=== PATIENT | male | born 1985 | race African-American/Black ===

== ENCOUNTER 2019-01-28 23:08 | Emergency (ER) | payer OTHER ==
[~2019-01-28] VITALS: Ht 170.2 cm; Wt 72.6 kg
[2019-01-28 23:24] VITALS: BP 147/96
[2019-01-28] MEDS ORDERED: HYDR30CR61 TP (23:40)
[2019-01-28] MEDS ORDERED: SENN-121 PO (23:40)
[2019-01-28] MEDS ORDERED: HYDR-3164 PO (23:40)
--- NOTE | 2019-01-28 23:40 | PHYS DOC ---
Past Medical History Past Medical History: No Pertinent History Past Surgical History: No Surgical History Alcohol Use: None Drug Use: Marijuana Adult General Chief Complaint Chief Complaint: OTHER COMPLAINTS HPI HPI Patient is a 33 year old [f__sex] who presents with [] Review of Systems Review of Systems Constitutional: Denies fever or chills [] Eyes: Denies change in visual acuity, redness, or eye pain [] HENT: Denies nasal congestion or sore throat [] Respiratory: Denies cough or shortness of breath [] Cardiovascular: No additional information not addressed in HPI [] GI: Denies abdominal pain, nausea, vomiting, bloody stools or diarrhea [] : Denies dysuria or hematuria [] Musculoskeletal: Denies back pain or joint pain [] Integument: Denies rash or skin lesions [] Neurologic: Denies headache, focal weakness or sensory changes [] Endocrine: Denies polyuria or polydipsia [] All other systems were reviewed and found to be within normal limits, except as documented in this note. Allergies Allergies Allergies Coded Allergies Type Severity Reaction Last Updated Verified No Known Drug Allergies 01/02/16 No Physical Exam Physical Exam Constitutional: Well developed, well nourished, no acute distress, non-toxic appearance. [] HENT: Normocephalic, atraumatic, bilateral external ears normal, oropharynx moist, no oral exudates, nose normal. [] Eyes: PERRLA, EOMI, conjunctiva normal, no discharge. [] Neck: Normal range of motion, no tenderness, supple, no stridor. [] Cardiovascular:Heart rate regular rhythm, no murmur [] Lungs & Thorax: Bilateral breath sounds clear to auscultation [] Abdomen: Bowel sounds normal, soft, no tenderness, no masses, no pulsatile masses. [] Skin: Warm, dry, no erythema, no rash. [] Back: No tenderness, no CVA tenderness. [] Extremities: No tenderness, no cyanosis, no clubbing, ROM intact, no edema. [] Neurologic: Alert and oriented X 3, normal motor function, normal sensory function, no focal deficits noted. [] Psychologic: Affect normal, judgement normal, mood normal. [] EKG EKG [] Radiology/Procedures Radiology/Procedures [] Course & Med Decision Making Course & Med Decision Making Pertinent Labs and Imaging studies reviewed. (See chart for details) [] Dragon Disclaimer Dragon Disclaimer This electronic medical record was generated, in whole or in part, using a voice recognition dictation system. Departure Departure Impression: Primary Impression: Anal fissure Disposition: HOME, SELF-CARE Condition: STABLE Referrals: NO PCP (PCP) ANÍBAL SAUER MD Patient Instructions: Anal Fissure, Adult, [id number] Scripts Sennosides/Docusate Sodium (Colace 2-in-1 Tablet) 1 Each Tablet 1 EACH PO QHS, #30 TAB Prov: MARTA STEWART DO 01/28/19 Hydrocodone/Apap 5-325 (NORCO 5-325 TABLET) 1 Each Tablet 1 TAB PO PRN Q6HRS PRN for PAIN, #10 TAB 0 Refills Prov: MARTA STEWART DO 01/28/19 Hydrocortisone (ANUSOL-HC) 30 Gm Cream..g. 1 CYNTHIA TP BID, #30 GM 0 Refills Prov: MARTA STEWART DO 01/28/19 MARTA STEWART DO Jan 28, 2019 23:40
[2019-01-28] MEDS ORDERED: HYDROcodone/APAP 5/325MG 1 TAB TABLET PO ONE (23:45)
== END 2019-01-29 00:02 | disposition home or self-care (01) ==
LOC: ER 23:08
DX: K60.2 Anal fissure, unspecified (principal)
CPT/HCPCS: 99283

== ENCOUNTER 2019-04-14 23:36 | Emergency (ER) | payer OTHER ==
[~2019-04-14] VITALS: Ht 188 cm; Wt 99.8 kg
[~2019-04-14 23:36] MED LIST: HYDR-3164 PO; HYDR30CR61 TP; SENN-121 PO
--- NOTE | 2019-04-15 00:18 | RAD ---
CT brain without contrast. HISTORY: Altered mental status CT scan of the brain was done without contrast. Sinuses are clear. There is no intracranial hemorrhage or subdural hematoma. Lateral ventricles are normal in size. There is no mass or shift of the midline. There are no abnormal areas of increased or decreased attenuation. IMPRESSION: 1. No intracranial hemorrhage or acute finding noted. PQRS Compliance Statement: One or more of the following individualized dose reduction techniques were utilized for this examination: 1. Automated exposure control 2. Adjustment of the mA and/or kV according to patient size 3. Use of iterative reconstruction technique Electronically signed by: Anjel Flores MD (04/15/2019 12:16 AM) [facility]
[2019-04-15 00:27] LABS: BARBITURATES NEG (NEG); BENZODIAZEPINES NEG (NEG); CANNABINOIDS POS (NEG); COCAINE NEG (NEG); METHADONE NEG (NEG); OPIATES NEG (NEG); PHENCYCLIDINE POS (NEG)
[2019-04-15 00:28] LABS: AMPHETAMINE/METHAMPHETAMINE NEG (NEG)
[2019-04-15 00:35] LABS: BASO % 0 % (0-3); EOS % 0 % (0-3); HEMATOCRIT 40.4 % (39.0-53.0); HEMOGLOBIN 13.4 g/dL (13.0-17.5); LYMPH # 1.3 x10^3/uL (1.0-4.8); LYMPH % 11 % (24-48); MEAN CORPUSCULAR HEMOGLOBIN 28 pg (25-35); MEAN CORPUSCULAR HGB CONC 33 g/dL (31-37); MEAN CORPUSCULAR VOLUME 86 fL (79-100); MONO # 0.7 x10^3/uL (0.0-1.1); MONO % 6 % (0-9); NEUT # 9.1 x10^3uL (1.8-7.7); NEUT % 82 % (31-73); PLATELET COUNT 234 x10^3/uL (140-400); RED BLOOD COUNT 4.71 x10^6/uL (4.30-5.70); RED CELL DISTRIBUTION WIDTH 14.3 % (11.5-14.5); WHITE BLOOD COUNT 11.1 x10^3/uL (4.0-11.0)
[2019-04-15 00:46] LABS: CALCIUM 9.4 mg/dL (8.5-10.1); CREATININE 1.6 mg/dL (0.7-1.3); GFR 60.2; POTASSIUM 3.5 mmol/L (3.5-5.1)
[2019-04-15 00:58] VITALS: BP 148/75
[2019-04-15] MEDS ORDERED: IV NORMAL SALINE 1000ML BAG 1,000 ML IV ONE ×2 (01:00→02:00)
[2019-04-15 01:01] LABS: ALBUMIN 4.2 g/dL (3.4-5.0); ALBUMIN/GLOBULIN RATIO 1.2 (1.0-1.7); TOTAL BILIRUBIN 0.4 mg/dL (0.2-1.0); TOTAL PROTEIN 7.7 g/dL (6.4-8.2)
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
--- NOTE | 2019-04-15 06:43 | EKG ---
[facility] [address] [place] [address] Test Date: 2019-04-15 Test Time: 00:18:40 Pat Name: JUANITA LABOY Department: Room: Gender: Aml Analyst: JEREMIAH : 1985 Requested By: JONATHAN MAYES Order Number: [id number] Reading MD: Measurements Intervals [place] Rate: 108 P: 74 IA: 148 QRS: 28 QRSD: 88 T: 20 QT: 320 QTc: 432 Interpretive Statements SINUS TACHYCARDIA LEFT ATRIAL ABNORMALITY S1,S2,S3 PATTERN INCOMPLETE RIGHT BUNDLE BRANCH BLOCK QRS(T) CONTOUR ABNORMALITY CONSIDER ANTEROLATERAL MYOCARDIAL DAMAGE ABNORMAL ECG RI6.01 Unconfirmed report No previous ECG available for comparison
== END 2019-04-15 03:43 | disposition left against medical advice (07) ==
LOC: ER 23:36
DX: F12.20 Cannabis dependence, uncomplicated (principal); R41.82 Altered mental status, unspecified; R00.0 Tachycardia, unspecified; R74.0 Nonspecific elevation of levels of transaminase and lactic acid dehydrogenase [LDH]
CPT/HCPCS: 36415; 70450; 80053; 80307; 82550; 83605; 83690; 85025; 93005; 96360; 96361; 99285; G0480; J7030

== ENCOUNTER 2019-05-15 00:05 | Emergency (ER) | payer OTHER ==
[~2019-05-15] VITALS: Ht 188 cm; Wt 108.9 kg
[2019-05-15 00:10] VITALS: BP 182/103
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
--- NOTE | 2019-05-15 07:37 | RAD ---
Indication: Trauma fifth toe. TECHNIQUE: 3 views of the right fifth toe COMPARISON: None Findings/ impression: No acute fracture or dislocation. Electronically signed by: Evens Ac DO (05/15/2019 7:35 AM) [facility]
== END 2019-05-15 00:55 | disposition home or self-care (01) ==
LOC: ER 00:05
DX: S90.121A Contusion of right lesser toe(s) without damage to nail, initial encounter (principal); I10 Essential (primary) hypertension; W22.8XXA Striking against or struck by other objects, initial encounter; Y93.89 Activity, other specified; Y92.89 Other specified places as the place of occurrence of the external cause; Y99.8 Other external cause status
CPT/HCPCS: 73660; 99284

== ENCOUNTER 2019-08-06 10:40 | Emergency (ER) | payer SELFPAY ==
[~2019-08-06] VITALS: Ht 188 cm; Wt 108.9 kg
[2019-08-06 10:40] VITALS: BP 185/111
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
== END 2019-08-06 11:05 | disposition home or self-care (01) ==
LOC: ER 10:40
DX: R41.82 Altered mental status, unspecified (principal); I10 Essential (primary) hypertension
CPT/HCPCS: 99281; 99283